=== PATIENT | female | born 1960 | race Caucasian/White ===

== ENCOUNTER 2018-12-12 15:52 | Emergency (ER) | payer SELFPAY, OTHER | END 2018-12-12 17:22 | disposition home or self-care (01) | LOC: E/R 15:52 | DX: S92.351A Displaced fracture of fifth metatarsal bone, right foot, initial encounter for closed fracture (principal); W19.XXXA Unspecified fall, initial encounter; Y92.9 Unspecified place or not applicable | CPT/HCPCS: 73610; 73610-RT; 73630; 99283-25 ==